=== PATIENT | male | born 1955 | race Caucasian/White ===

== ENCOUNTER 2018-02-11 12:15 | Inpatient (IN) | payer OTHER ==
[~2018-02-11] VITALS: Ht 165.1 cm; Wt 77.6 kg
[2018-02-11] MEDS ORDERED: PANTOPRAZOLE SO40 MG PO (13:45)
== END 2018-02-19 11:16 | DRG 331 ==
LOC: SURG 02-16 10:40 → O/R 02-16 10:40 → SURH 02-16 12:15 → SURG 02-16 21:08
PROVIDERS: Colon & Rectal Surgery
PROC: 07TC4ZZ Resection of Pelvis Lymphatic, Percutaneous Endoscopic Approach (ICD-10-PCS; 2018-02-16)
PROC: 0DBU4ZZ Excision of Omentum, Percutaneous Endoscopic Approach (ICD-10-PCS; 2018-02-16)
PROC: 0DJD8ZZ Inspection of Lower Intestinal Tract, Via Natural or Artificial Opening Endoscopic (ICD-10-PCS; 2018-02-16)
PROC: 0DTM4ZZ Resection of Descending Colon, Percutaneous Endoscopic Approach (ICD-10-PCS; principal; 2018-02-16 20:00)
DX: D12.4 Benign neoplasm of descending colon (principal); D64.89 Other specified anemias